=== PATIENT | female | born 1965 | race Caucasian/White ===

== ENCOUNTER 2021-04-06 09:22 | Observation (INO) | payer MEDICARE, OTHER ==
[2021-04-06] MEDS ORDERED: ATORVASTATIN CA40 MG PO (13:53)
[2021-04-06] MEDS ORDERED: FIASP PENF100 UNIT/1 SQ (13:55)
[2021-04-06] MEDS ORDERED: PROZAC20 MG PO (13:56)
[2021-04-06] MEDS ORDERED: TRAZODONE HCL100 MG PO (13:57)
[2021-04-06] MEDS ORDERED: LITHIUM CARBON450 MG PO (13:57)
[2021-04-06] MEDS ORDERED: LANTUS SOL100 UNIT/1 SQ (13:58)
[2021-04-06] MEDS ORDERED: LISINOPRIL10 MG PO (13:59)
[2021-04-06] MEDS ORDERED: OLANZAPINE15 MG PO (13:59)
[2021-04-06 14:36] LABS: HEMOGLOBIN 12.4 gm/dl (12.3-15.3); RED BLOOD COUNT 4.14 M/UL (4.00-5.10); WHITE BLOOD COUNT 11.4 K/UL (4.5-11.0)
[2021-04-06 15:25] LABS: BUN/CREATININE RATIO 22 (0-10)
[2021-04-06] MEDS ORDERED: PROTONIX40 MG PO (15:32)
== END 2021-04-06 19:27 | disposition home or self-care (01) ==
LOC: MED SURG 4 13:21
PROVIDERS: ADMIT Internal Medicine
DX: R07.89 Other chest pain (principal); K21.9 Gastro-esophageal reflux disease without esophagitis; E11.65 Type 2 diabetes mellitus with hyperglycemia; F31.9 Bipolar disorder, unspecified; F41.9 Anxiety disorder, unspecified; I10 Essential (primary) hypertension; E78.5 Hyperlipidemia, unspecified; E66.9 Obesity, unspecified; Z68.41 Body mass index [BMI] 40.0-44.9, adult; Z87.891 Personal history of nicotine dependence; Z79.4 Long term (current) use of insulin; Z79.899 Other long term (current) drug therapy
CPT/HCPCS: 36415; 80048; 82550; 82553; 84484; 85025; G0378; G0379